=== PATIENT | male | born 1940 | race Caucasian/White ===

== ENCOUNTER 2019-11-29 04:15 | Observation (INO) | payer MEDICARE, OTHER ==
[~2019-11-29] VITALS: Ht 198.1 cm; Wt 93.2 kg
[2019-11-29] MEDS ORDERED: aspirin 81mg tab.chew PO ONE ×2 (04:20→04:45)
[2019-11-29] MEDS ORDERED: nitroGLYCERIN 0.4mg SUBLingual tab SL PRN ×3 (04:20→06:35)
[2019-11-29 04:42] LABS: BASOPHILS % (AUTO) 0.8 % (0-1); EOSINOPHILS # (AUTO) 0.1 X10'3 (0-0.9); EOSINOPHILS % (AUTO) 2.6 % (0-6); HEMATOCRIT 39.5 % (42.0-52.0); HEMOGLOBIN 13.3 g/dl (14.0-17.9); LYMPHOCYTES # (AUTO) 0.9 X10'3 (1.1-4.8); LYMPHOCYTES % (AUTO) 16.4 % (21-51); MEAN CORPUSCULAR HEMOGLOBIN 31.4 PG (27.0-31.0); MEAN CORPUSCULAR HGB CONC 33.6 g/dL (33.0-36.5); MEAN CORPUSCULAR VOLUME 93.4 FL (78-98); MEAN PLATELET VOLUME 8.2 FL (7.4-10.4); MONOCYTES # (AUTO) 0.5 X10'3 (0-0.9); MONOCYTES % (AUTO) 9.2 % (2-12); NEUTROPHILS # (AUTO) 3.8 X10'3 (1.8-7.7); PLATELET COUNT 233 X10'3 (140-440); RED BLOOD COUNT 4.23 X10'6 (4.70-6.10); RED CELL DISTRIBUTION WIDTH 13.7 % (11.5-14.5); WHITE BLOOD COUNT 5.4 X10'3 (4.5-11.0)
[2019-11-29 05:02] LABS: ALANINE AMINOTRANSFERASE 22 U/L (12-78); ALBUMIN 3.9 G/DL (3.4-5.0); ALBUMIN/GLOBULIN RATIO 1.2 (1.1-1.5); ALKALINE PHOSPHATASE 127 IU/L (46-116); ANION GAP 3 (8-16); ASPARTATE AMINO TRANSFERASE 22 U/L (10-37); BILIRUBIN,TOTAL 0.6 MG/DL (0.1-1.0); BLOOD UREA NITROGEN 17 MG/DL (7-18); BUN/CREATININE RATIO 16.7 (5.4-32.0); CALCIUM 9.2 MG/DL (8.5-10.1); CHLORIDE 108 MMOL/L (99-107); CREATININE 1.02 MG/DL (0.60-1.10); GLUCOSE 124 MG/DL (70-104); POTASSIUM 4.2 MMOL/L (3.5-5.1); SODIUM 142 MMOL/L (135-145); TOTAL CARBON DIOXIDE 30.8 MMOL/L (24-32); TOTAL PROTEIN 7.2 G/DL (6.4-8.2); eGFR 71 ML/MIN
[2019-11-29] MEDS ORDERED: LOSA25TA96 PO (05:51)
[2019-11-29] MEDS ORDERED: morphine 2 MG/ML inj. syringe IV PRN (06:00)
[2019-11-29] MEDS ORDERED: magnesium Cl slow-release 64mg tablet PO PRN (06:00)
[2019-11-29] MEDS ORDERED: ondansetron/PF 4mg/2ml inj IV PRN (06:00)
[2019-11-29] MEDS ORDERED: magnesium 4gm in 100ml NS 100 ML IV PRN (06:00)
[2019-11-29] MEDS ORDERED: acetaminophen 325mg tablet PO PRN ×2 (06:00)
[2019-11-29] MEDS ORDERED: bisacodyl 10mg suppository rectal RC PRN (06:00)
[2019-11-29] MEDS ORDERED: potassium Cl 20 mEq SR tablet PO PRN ×2 (06:00)
[2019-11-29] MEDS ORDERED: mag hydrox/Alum hydrox/simeth 30ml oral suspension PO PRN (06:00)
[2019-11-29] MEDS ORDERED: potassium CL 10mEq/100ml bag 100 ML IV PRN ×2 (06:00)
[2019-11-29] MEDS ORDERED: magnesium 2GM in 50ml NS 50 ML IV PRN (06:00)
[2019-11-29] MEDS ORDERED: magnesium hydroxide 30ml (MOM) UD suspension PO PRN (06:00)
[2019-11-29] MEDS ORDERED: enoxaparin 40mg/0.4ml syringe SQ SCH (08:00)
[2019-11-29] MEDS ORDERED: K and/or MAG REPLACEMENT MC SCH (08:00)
[2019-11-29] MEDS ORDERED: aspirin 81mg tablet.DR PO SCH (08:00)
[2019-11-29] MEDS ORDERED: losartan 50mg tablet PO SCH (08:00)
[2019-11-29] MEDS ORDERED: atorvastatin 20mg tablet PO SCH (08:00)
[2019-11-29] MEDS ORDERED: docusate sod 100mg capsule PO SCH (08:00)
--- NOTE | 2019-11-29 10:00 | NUR ---
Patient c/o left axillary burning pain with rash. patient states that rash has been there for a few days. Patient states that she also has rash over the left posterior shoulder at which he states rash itches. Dr. Ravi called regarding rash and concern regarding shingles. Patient has in patient room assigned, but is assigned to go to [facility] unit. Dr. Ravi stated that he will come down to evaluated patient shortly. supervisor accounts receivable, Camilla PULIDO, notified regarding new findings.
--- NOTE | 2019-11-29 10:40 | NUR ---
Dr. Ravi evaluated patient stating that he is unable to rule out shingles and patient needs to be treated for shingles. Patient placed on isolation and district supervisor notified regarding new diagnosis. Room assignment will be changed.
[2019-11-29] MEDS: valacyclovir 500mg tablet PO SCH ×2 (11:21→16:55)
--- NOTE | 2019-11-29 15:58 | NUR ---
Patient in room [facility]. I have received report from Kiara PULIDO and had the opportunity to ask questions and assume patient care.Patient appears to be in stable state no c/o chest pain. VSS will continue to monitor
[2019-11-29 16:06] VITALS: BP 133/72
[2019-11-29] MEDS ORDERED: VALA100031 PO (17:15)
[2019-11-29] MEDS ORDERED: LIDO30CR23 TOP (18:06)
[2019-11-29] MEDS ORDERED: LYR75C PO (18:06)
--- NOTE | 2019-11-29 18:22 | NUR ---
Patient seen by DR Ravi is for discharge. Patients meds called into [facility] on [address] [place]. All Dc instructions given to patient . Patient awaiting ride at time of report
--- NOTE | 2019-11-29 18:54 | NUR ---
patient Dc with friend home in stable condition.
[2019-11-30] MEDS ORDERED: pneumococcal 23-VAL P-sac vacc 25 mcg/0.5ml vial IMVAC ONE (09:00)
== END 2019-11-29 19:00 | disposition home or self-care (01) ==
LOC: ER 04:16 → ED HOLD 05:59 → EDBEDREQ 08:58 → SUR 3N 15:15
PROVIDERS: ADMIT Family Medicine; ATTEND Family Medicine
DX: I10 Essential (primary) hypertension (principal); R07.89 Other chest pain; B02.9 Zoster without complications; Z79.899 Other long term (current) drug therapy
CPT/HCPCS: 36415; 71045; 80053; 83735; 83880; 84484; 85025; 87081; 93005; 93306; 96372; 99285; G0378; J1650

== ENCOUNTER 2022-01-08 05:24 | Day surgery (SDC) | payer MEDICARE, OTHER ==
[2022-01-01 15:40] LABS: BASOPHILS % (AUTO) 0.6 % (0-1); EOSINOPHILS # (AUTO) 0.2 X10'3 (0-0.9); EOSINOPHILS % (AUTO) 2.4 % (0-6); LYMPHOCYTES % (AUTO) 15.4 % (21-51); MEAN CORPUSCULAR HEMOGLOBIN 31.2 PG (27.0-31.0); MEAN CORPUSCULAR HGB CONC 33.5 g/dL (33.0-36.5); MEAN PLATELET VOLUME 8.6 FL (7.4-10.4); MONOCYTES # (AUTO) 0.4 X10'3 (0-0.9); MONOCYTES % (AUTO) 6.4 % (2-12); NEUTROPHILS # (AUTO) 4.8 X10'3 (1.8-7.7); NEUTROPHILS % (AUTO) 75.2 % (42-75); PRE OP HEMATOCRIT 37.4 % (42.0-52.0); PRE OP HEMOGLOBIN 12.5 g/dL (14.0-17.9); PRE OP PLATELET COUNT 216 X10'3 (140-440); RED BLOOD COUNT 4.02 X10'6 (4.70-6.10)
[2022-01-01 16:04] LABS: ALBUMIN 3.6 G/DL (3.4-5.0); ALBUMIN/GLOBULIN RATIO 1.2 (1.1-1.5); ALKALINE PHOSPHATASE 114 IU/L (46-116); BLOOD UREA NITROGEN 25 MG/DL (7-18); BUN/CREATININE RATIO 24.8 (5.4-32.0); CALCIUM 9.1 MG/DL (8.5-10.1); CHLORIDE 111 MMOL/L (99-107); CREATININE 1.01 MG/DL (0.60-1.10); PRE OP ALT 28 U/L (30-65); PRE OP ANION GAP 6 (8-16); PRE OP AST 25 U/L (10-37); PRE OP BILIRUB, TOTAL 0.5 MG/DL (0.0-1.0); PRE OP GLUCOSE 105 MG/DL (70-104); PRE OP POTASSIUM 4.3 MMOL/L (3.4-5.1); PRE OP SODIUM 145 MMOL/L (135-145); TOTAL CARBON DIOXIDE 27.9 MMOL/L (24-32); TOTAL PROTEIN 6.6 G/DL (6.4-8.2); eGFR 71 ML/MIN
[~2022-01-08] VITALS: Ht 198.1 cm; Wt 95.3 kg
[2022-01-08] VITALS (14 sets, daily range): BP systolic 98–143; BP diastolic 64–85
[~2022-01-08 05:24] MED LIST: LIDO30CR TOP; LOSA25TA96 PO; METO-384 PO; VALA100031 PO; ringers solution, lacted 1,000 ML IV SCH
[2022-01-08] MEDS ORDERED: DOCUMENT DATE & TIME OF BETA-BLOCKER PO ONE (05:30)
[2022-01-08] MEDS ORDERED: cefazolin/dext.iso 2gm/50ml IV ONE (05:30)
[2022-01-08] MEDS ORDERED: famotidine 20mg tablet PO ONE (05:30)
[2022-01-08] MEDS ORDERED: LIDOcaine 1% 30ml preserv. free vial ONE (07:02)
[2022-01-08] MEDS ORDERED: BUPIVAcaine 0.5% inj/PF 30 ML ONE (07:02)
[2022-01-08] MEDS ORDERED: fentaNYL/PF 50MCG/1 ML 2ML syringe IV PRN ×2 (07:30)
[2022-01-08] MEDS ORDERED: ringers solution, lacted 1,000 ML IV SCH (07:30)
[2022-01-08] MEDS ORDERED: neostigmine methylsulfate 1 MG/ML 10ml vial ONE (07:30)
[2022-01-08] MEDS ORDERED: ondansetron/PF 4mg/2ml inj IV PRN (07:30)
[2022-01-08] MEDS ORDERED: morphine 4 MG/ML inj SYRINge IV PRN (07:30)
[2022-01-08] MEDS ORDERED: labetalol 20mg/4ml (5mg/ml) syringe IV PRN (07:30)
[2022-01-08] MEDS ORDERED: hydrALAZINE 20mg/ml inj. IV PRN (07:30)
[2022-01-08] MEDS ORDERED: sevoflurane 250ml liquid IH ONE (07:30)
[2022-01-08] MEDS ORDERED: morphine 2 MG/ML inj. syringe IV PRN (07:30)
[2022-01-08] MEDS ORDERED: fentaNYL /PF 50mcg/ml 5ml ampule ONE (07:37)
[2022-01-08] MEDS ORDERED: midazolam 1 mg/ML 2ml injection ONE (07:37)
[2022-01-08] MEDS ORDERED: rocuronium 10mg/ml inj IV ONE (07:48)
[2022-01-08] MEDS ORDERED: ePHEDrine 50MG/ML INJ. ONE (07:48)
[2022-01-08] MEDS ORDERED: LIDOcaine 2% (20mg/ml) 5ml vial ONE (07:48)
[2022-01-08] MEDS ORDERED: propofol inj 20 ML IV ONE (07:48)
[2022-01-08] MEDS ORDERED: glycopyrrolate 0.2mg/ml inj ONE (07:49)
[2022-01-08] MEDS ORDERED: ondansetron/PF 4mg/2ml inj ONE (07:49)
[2022-01-08] MEDS ORDERED: dexamethasone sod phosphate 4mg/ml inj. ONE (07:51)
[2022-01-08] MEDS ORDERED: BUPIVAcaine 0.5% inj/PF 30 ml vial IJ ONE (08:01)
[2022-01-08] MEDS ORDERED: MIDAZolam 1mg/ml 10ml vial ONE (08:21)
--- NOTE | 2022-01-08 09:03 | NUR ---
Received from OR via [facility] , accompanied by Anesthesiologist DR CARRINGTON and report given by Anesthesiolgist. PT PRESENTS WITH 20G LEFT WRIST, ABD BANDAIDS WITH STRI STIPS X 3 CDI, VSS. Addendum: 01/08/22 at 0919 by June Espinoza RN, RN Amended: Links added.
[2022-01-08] MEDS ORDERED: HYDROcodone/acetaminophen 5mg/325mg tablet PO PRN (09:15)
--- NOTE | 2022-01-08 10:45 | NUR ---
PT TAKEN TO [facility], REPORT GIVEN TO JOANNE PULIDO. Addendum: 01/08/22 at 1100 by June Espinoza RN, RN Amended: Links added.
--- NOTE | 2022-01-08 12:03 | NUR ---
RECIEVED PT IN PAS AT 1050. PT JACLYN H20 AND STATES PAIN IS TOLERABLE. ENCOURAGED PT TO GET UP OUT OF BED AND WALK JACLYN. 1115 BLADDER SCAN FOR 295ML. PT DENIES URGE TO VOID, ENCOURAGED PT TO ATTEMPT TO VOID PRIOR TO F/C PLACEMENT. PT UP TO BR STEADY GAIT ABLE TO VOID 225ML CLEAR YELLOW WITHOUT DIFFICULTY. PTS RIDE CONTACTED. PT C/O PAIN 03/06. NORCO 5MG GIVEN 1156 WITH CRACKERS AND JELLO. IV REMOVED CATH INTACT, LAP DSG TO ABD CDI. PT DC TO HOME VIA W/C. PRINTED D/C INSTRUCTIONS GIVEN WITH VERBAL UNDERSTANDING. Addendum: 01/08/22 at 1231 by Bianca Pimentel RN Amended: Links added.
== END 2022-01-08 12:03 | disposition home or self-care (01) ==
LOC: PAS 05:24
PROVIDERS: ATTEND Surgery
DX: K40.20 Bilateral inguinal hernia, without obstruction or gangrene, not specified as recurrent (principal); K42.9 Umbilical hernia without obstruction or gangrene; K66.0 Peritoneal adhesions (postprocedural) (postinfection); I10 Essential (primary) hypertension; E78.00 Pure hypercholesterolemia, unspecified; D64.9 Anemia, unspecified; Z20.822 Contact with and (suspected) exposure to COVID-19; Z98.890 Other specified postprocedural states; Z72.89 Other problems related to lifestyle; Z96.643 Presence of artificial hip joint, bilateral; Z79.899 Other long term (current) drug therapy; Z83.2 Family history of diseases of the blood and blood-forming organs and certain disorders involving the immune mechanism
CPT/HCPCS: 36415; 49585; 49650; 80053; 82948; 85025; 93005; C1781; J1100; J2250; J2270; J2405; J2704; J3010; J3490; J7030; J7120; S0020; U0003; U0005; Z7506; Z7508; Z7512; A4215; A4618; J0690; J2710